=== PATIENT | female | born 1980 | race Caucasian/White ===

== ENCOUNTER → 2020-05-14 | Outpatient (CLI) | payer OTHER ==
[~2020-05-14] MED LIST: ALDACTONE25 M1 PO; AUGMENTIN 875 M1 TAB PO; BIRTH CONTROL1 EAC1 PO; CLARITIN10 MG PO; COMBIVENT1 ARO IH; IBU-8800 MG PO; MOTRIN800 MG PO; PERCOCET 325 MG1 TA7 PO; SYNTHROID0.112 MG PO; VICTOZA6 MG/ML PO
== END | disposition home or self-care (01) ==
LOC: COVID19 15:34
PROVIDERS: ATTEND Internal Medicine
DX: Z20.828 Contact with and (suspected) exposure to other viral communicable diseases (principal)

== ENCOUNTER → 2020-07-16 | Outpatient (CLI) | payer OTHER | END | disposition home or self-care (01) | LOC: COVID19 12:52 | PROVIDERS: ATTEND Nurse Practitioner Family | DX: Z20.822 Contact with and (suspected) exposure to COVID-19 (principal) ==